=== PATIENT | male | born 1985 | race Caucasian/White ===

== ENCOUNTER 2019-01-08 19:21 | Emergency (ER) | payer MEDICAID ==
[~2019-01-08] VITALS: Ht 180.3 cm; Wt 72.6 kg
--- NOTE | 2019-01-08 19:42 | NUR ---
ED Nurse Note: Patient complains of headache. states he has had the headache for a couple of weeks. No vomitting or other recent illness. Await review.
--- NOTE | 2019-01-08 19:55 | NUR ---
ED Nurse Note: Patient offerred meal - accepted chicken sandwich and juice.
[2019-01-08 19:56] VITALS: BP 142/88
[2019-01-08] MEDS ORDERED: Excedrin Migraine tab ORAL ONE (20:00)
--- NOTE | 2019-01-08 20:07 | NUR ---
ED Nurse Note: Medications as prescribed.
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
[2019-01-08] MEDS ORDERED: EXCEDRIN MIGRA1 EACH PO (21:11)
--- NOTE | 2019-01-08 21:39 | NUR ---
ER DISCHARGE NOTE: Patient is cleared to be discharged per ERMD, pt is aox4, on room air, with stable vital signs. pt was given dc and prescription instructions, pt was able to verbalize understanding, pt id band removed. pt is able to ambulate with steady gait. pt took all belongings.
[2019-01-08 21:40] VITALS: BP 134/76
== END 2019-01-08 21:40 | disposition home or self-care (01) ==
LOC: EMR 19:52
DX: R51 Headache (principal); Z88.1 Allergy status to other antibiotic agents; Z88.0 Allergy status to penicillin
CPT/HCPCS: 99282